=== PATIENT | male | born 1985 | race Caucasian/White ===

== ENCOUNTER 2017-02-25 08:28 | Inpatient (IN) | payer BC ==
[2017-02-25 09:17] VITALS: BMI 28.0
[2017-02-25] MEDS ORDERED: diphenhydrAMINE HCL 50 MG CAPSULE PO PRN (11:19)
[2017-02-25] MEDS ORDERED: LOPERAMIDE HCL 2 MG CAPSULE PO PRN (11:19)
[2017-02-25] MEDS ORDERED: MAGNESIUM CITRATE 300 ML BOTTLE PO PRN (11:19)
[2017-02-25] MEDS ORDERED: P-EPHED 60MG/TRIPROLIDI 2.5MG TABLET PO PRN (11:19)
[2017-02-25] MEDS ORDERED: MAGNESIUM HYDROX 2400MG/30ML ORAL SUSPENSION 30 ML CUP PO PRN (11:19)
[2017-02-25] MEDS ORDERED: IBUPROFEN 400 MG TABLET (FP) PO PRN (11:19)
[2017-02-25] MEDS ORDERED: ACETAMINOPHEN 325 MG TABLET (FP) PO PRN (11:19)
[2017-02-25] MEDS ORDERED: guaiFENesin/D-METHORPHAN HB 10 ML UNIT-DOSE CUPS PO PRN (11:19)
[2017-02-25] MEDS ORDERED: MENTHOL/PHENOL 1 EACH UD MM PRN (11:19)
[2017-02-25] MEDS ORDERED: ZOLPIDEM TARTRATE 10 MG TABLET (PARK CARE ONLY) PO PRN (11:21)
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
[2017-02-25] MEDS: NICOTINE 21 MG/24 HOURS TOPICAL PATCH TD SCH (13:12)
[2017-02-25] MEDS ORDERED: chlordiazePOXIDE HCL 25 MG CAPSULE PO ONE (13:15)
[2017-02-25] MEDS ORDERED: METHADONE HCL 10 MG TABLET (FOR DETOX USE ONLY) PO ONE ×2 (13:15→23:00)
[2017-02-25 13:47] LABS: MCH 30.1 pg (25.7-33.7); MCHC 33.7 g/dl (32.0-35.9); MEAN CELL VOLUME 89.4 fl (80-96); MEAN PLT VOLUME 9.3 fl (7.5-11.1); PLATELET COUNT 213 K/MM3 (134-434); RDW 12.3 % (11.9-15.9); WHITE BLOOD COUNT 10.7 K/mm3 (4.0-10.0)
[2017-02-25 14:15] LABS: ALBUMIN 4.4 g/dl (3.4-5.0); ALK PHOS 57 U/L (45-117); ANION GAP 7 (8-16); BILIRUBIN,TOTAL 0.7 mg/dL (0.2-1.0); CALCIUM 9.5 mg/dL (8.5-10.1); CO2 28 mmol/L (21-32); CREATININE 0.8 mg/dL (0.7-1.3); GLUCOSE,RANDOM 104 mg/dL (74-106); SGOT/AST 14 U/L (15-37); SGPT/ALT 32 U/L (12-78); TOT PROT 7.9 g/dl (6.4-8.2)
[2017-02-25 14:38] LABS: SICKLE CELL SCREEN NEGATIVE (NEGATIVE)
[2017-02-25] MEDS: chlordiazePOXIDE HCL 25 MG CAPSULE PO SCH ×2 (17:10→22:11)
[2017-02-25 17:37] LABS: URINE APPEARANCE CLEAR; URINE BILIRUBIN NEGATIVE (NEGATIVE); URINE BLOOD 1+ (NEGATIVE); URINE COLOR LTYELLOW; URINE GLUCOSE (UA) NEGATIVE (NEGATIVE); URINE KETONE TRACE (NEGATIVE); URINE LEUK ESTERASE NEGATIVE (NEGATIVE); URINE NITRITE NEGATIVE (NEGATIVE); URINE PROTEIN NEGATIVE (NEGATIVE); URINE UROBILINOGEN NEGATIVE mg/dL (0.2-1.0)
[2017-02-25 17:46] LABS: URINE MUCUS RARE; URINE RBC 1 /hpf (0-3); URINE WBC <1 /hpf (3-5)
[2017-02-25] MEDS: THIAMINE HCL 100 MG TABLET (FP) PO SCH (22:11)
[2017-02-25] MEDS: NICOTINE POLACRILEX 4 MG GUM BC PRN (22:26)
[2017-02-26] MEDS: chlordiazePOXIDE HCL 25 MG CAPSULE PO SCH ×4 (05:34→22:19)
[2017-02-26] MEDS: NICOTINE POLACRILEX 4 MG GUM BC PRN ×6 (05:36→23:06)
[2017-02-26] MEDS ORDERED: METHADONE HCL 10 MG TABLET (FOR DETOX USE ONLY) PO SCH (10:00)
[2017-02-26] MEDS: PRENATAL VITAMINS W/ FOLIC ACID TABLET (FP) PO SCH (11:08)
[2017-02-26] MEDS: NICOTINE 21 MG/24 HOURS TOPICAL PATCH TD SCH (11:09)
--- NOTE | 2017-02-26 12:27 | EKG ---
Test Reason : Blood Pressure : / mmHG Vent. Rate : 067 BPM Atrial Rate : 067 BPM P-R Int : 150 ms QRS Dur : 112 ms QT Int : 414 ms P-R-T Axes : 045 040 048 degrees QTc Int : 437 ms NORMAL SINUS RHYTHM WITH SINUS ARRHYTHMIA NORMAL ECG NO PREVIOUS ECGS AVAILABLE Confirmed by AMINA MARTINEZ MD ([id number]) on 02/26/2017 12:27:39 PM Referred By: Callum Blum Confirmed By:AMINA MARTINEZ MD
--- NOTE | 2017-02-26 13:06 | PN ---
[facility] CIWA - CIWA Score Nausea/Vomitin-No Nausea/No Vomiting Muscle Tremors: 4-Moderate,w/Arms Extend Anxiety: 4-Mod. Anxious/Guarded Agitation: 4-Moderately Restless Paroxysmal Sweats: 3 Orientation: 0-Oriented Tacttile Disturbances: 0-None Auditory Disturbances: 0-None Visual Disturbances: 0-None Headache: 0-None Present CIWA-Ar Total Score: 15 BHS COWS - Scale Resting Pulse: 0= [place] 80 or Below Sweatin=Flushed/Facial Moisture Restless Observation: 1= Difficult to Sit Still Pupil Size: 0= Normal to Room Light Bone or Joint Aches: 2= Severe Diffuse Aches Runny Nose/ Eye Tearin= Runny Nose/Eyes GI Upset > 30mins: 1= Stomach Cramp Tremor Observation of Outstretched Hands: 2= Slight Tremor Visible Yawning Observation: 1= 1-2x During Session Anxiety or Irritability: 2=Irritable/Anxious Goose Flesh Skin: 0=Smooth Skin COWS Score: 13 S Progress Note (SOAP) Subjective: shakes sweats interrupted sleep agitation body aches Objective: 02/26/17 13:05 Vital Signs Temperature 97.7 F 02/26/17 10:05 Pulse Rate 77 02/26/17 10:05 Respiratory Rate 18 02/26/17 10:05 Blood Pressure 134/73 02/26/17 10:05 O2 Sat by Pulse Oximetry (%) Laboratory Tests 02/25/17 02/25/17 02/25/17 11:40 11:40 11:40 WBC 10.7 H RBC 5.25 Hgb 15.8 Hct 46.9 MCV 89.4 MCH 30.1 MCHC 33.7 RDW 12.3 Plt Count 213 MPV 9.3 Sickle Cell Screen Negative Sodium 137 Potassium 4.7 Chloride 102 Carbon Dioxide 28 Anion Gap 7 L BUN 13 Creatinine 0.8 Creat Clearance w eGFR > 60 Random Glucose 104 Calcium 9.5 Total Bilirubin 0.7 AST 14 L ALT 32 Alkaline Phosphatase 57 Total Protein 7.9 Albumin 4.4 Urine Color Urine Appearance Urine pH Ur Specific [place] Urine Protein Urine Glucose (UA) Urine Ketones Urine Blood Urine Nitrite Urine Bilirubin Urine Urobilinogen Ur Leukocyte Esterase Urine RBC Urine WBC Urine Mucus RPR Titer Hepatitis C Antibody <0.1 02/25/17 02/25/17 11:40 12:00 WBC RBC Hgb Hct MCV MCH MCHC RDW Plt Count MPV Sickle Cell Screen Sodium Potassium Chloride Carbon Dioxide Anion Gap BUN Creatinine Creat Clearance w eGFR Random Glucose Calcium Total Bilirubin AST ALT Alkaline Phosphatase Total Protein Albumin Urine Color Ltyellow Urine Appearance Clear Urine pH 5.0 Ur Specific [place] 1.015 Urine Protein Negative Urine Glucose (UA) Negative Urine Ketones Trace H Urine Blood 1+ H Urine Nitrite Negative Urine Bilirubin Negative Urine Urobilinogen Negative Ur Leukocyte Esterase Negative Urine RBC 1 Urine WBC <1 Urine Mucus Rare RPR Titer Nonreactive Hepatitis C Antibody awake/alert ambulating no acute distress Assessment: 02/26/17 13:06 withdrawal sx Plan: continue detox increase fluids
--- NOTE | 2017-02-26 13:40 | CONSULT ---
[facility] Psychiatric Consult - Data Date of interview: 02/26/17 Admission source: [facility] Identifying data: This is 31 years old female with no psychiatric hospitalization history intoxicated with: Alcohol, Heroin and Nicotine Substance Abuse History: Smoking history: Current every day smoker. Have you smoked in the past 12 months: Yes. Aproximately how many cigarettes per day: 20. Hx Chewing Tobacco Use: No. Initiated information on smoking cessation: Yes. 'Breaking Loose' booklet given: 02/25/17. - Substance & Tx. History. Hx Alcohol Use: Yes. Hx Substance Use: Yes. Substance Use Type: Alcohol, Heroin. Hx Substance Use Treatment: Yes (3 weeks ago was d/c from [place] for smoking , did not complete detox, rela). - Substances Abused. Heroin. Route: Inhalation. Frequency: Daily. Amount used: 10 bags. Age of first use: 28. Date of Last Use: 02/24/17. Alcohol-vodka/whisky/beer. Route: Oral. Frequency: Daily. Amount used: 1 liter/1-6 pk. Age of first use: 16. Date of Last Use: 02/25/17 Medical History: Denies any significant medical poflem Psychiatric History: Denies past psychiatric history. Patient reports anxiety and emotional distress due to incoming rehabilitation program he decided to go aftyer detoxifications protocol Physical/Sexual Abuse/Trauma History: Denies Additional Comment: Observation. Detox Unit Care Protocol Mental Status Exam - Mental Status Exam Alert and Oriented to: Person Cognitive Function: Fair Patient Appearance: Well Groomed Mood: Nervous, Anxious Affect: Mood Congruent Patient Behavior: Cooperative Speech Pattern: Excessive Voice Loudness: Normal Thought Process: Goal Oriented Thought Disorder: Being Controlled Hallucinations: Denies Suicidal Ideation: Denies Homicidal Ideation: Denies Insight/Judgement: Fair Sleep: Difficulty falling asleep Appetite: Fair Muscle strength/Tone: Normal Gait/Station: Normal Additional Comments: Observation. Detox unit care protocol Psychiatric Findings - Problem List ([place] 1, 2,3) (1) Alcohol dependence with uncomplicated withdrawal Current Visit: Yes Status: Chronic (2) Nicotine dependence Current Visit: Yes Status: Chronic Qualifiers: Nicotine product type: cigarettes Substance use status: uncomplicated Qualified Code(s): F17.210 - Nicotine dependence, cigarettes, uncomplicated (3) Opioid dependence with withdrawal Current Visit: Yes Status: Chronic (4) Drug-induced mood disorder Current Visit: Yes Status: Acute - Initial Treatment Plan Initial Treatment Plan: Observation. Detox unit care protocol. Haldol 1mg po prn q4 for anxiety
[2017-02-26] MEDS: chlordiazePOXIDE HCL 25 MG CAPSULE PO PRN (14:02)
[2017-02-26] MEDS: hydrOXYzine PAMOATE 50 MG CAPSULE (FP) PO PRN ×2 (15:20→19:41)
[2017-02-26] MEDS: THIAMINE HCL 100 MG TABLET (FP) PO SCH (22:18)
[2017-02-27] MEDS: hydrOXYzine PAMOATE 50 MG CAPSULE (FP) PO PRN ×5 (00:43→22:02)
[2017-02-27] MEDS: chlordiazePOXIDE HCL 25 MG CAPSULE PO SCH ×2 (06:06→11:22)
[2017-02-27] MEDS: NICOTINE POLACRILEX 4 MG GUM BC PRN (08:57)
--- NOTE | 2017-02-27 10:48 | PN ---
S CIWA - CIWA Score Nausea/Vomitin Muscle Tremors: 3 Anxiety: 3 Agitation: 3 Paroxysmal Sweats: 1-Minimal Palms Moist Orientation: 0-Oriented Tacttile Disturbances: 1-Very Mild Itch/Numbness Auditory Disturbances: 1-Very Mild Visual Disturbances: 0-None Headache: 2-Mild CIWA-Ar Total Score: 17 BHS COWS - Scale Resting Pulse: 1= [place] 81-100 Sweatin= Chills/Flushing Restless Observation: 3= Extraneous Movement Pupil Size: 1= Pupils >than Normal Bone or Joint Aches: 2= Severe Diffuse Aches Runny Nose/ Eye Tearin= Nasal Congestion GI Upset > 30mins: 2= Nausea/Diarrhea Tremor Observation of Outstretched Hands: 2= Slight Tremor Visible Yawning Observation: 1= 1-2x During Session Anxiety or Irritability: 2=Irritable/Anxious Goose Flesh Skin: 0=Smooth Skin COWS Score: 16 BHS Progress Note (SOAP) Subjective: ALERT,IRRITABLE,ANXIOUS,INTERRUPTED SLEEP,TREMOR,PAIN IN THE BODY AND BACK Objective: 02/27/17 10:47 Vital Signs Temperature 98.1 F 02/27/17 10:01 Pulse Rate 83 02/27/17 10:01 Respiratory Rate 18 02/27/17 10:01 Blood Pressure 129/80 02/27/17 10:01 O2 Sat by Pulse Oximetry (%) Laboratory Last Values WBC 10.7 K/mm3 (4.0-10.0) H 02/25/17 11:40 RBC 5.25 M/mm3 (4.00-5.60) 02/25/17 11:40 Hgb 15.8 GM/dL (11.7-16.9) 02/25/17 11:40 Hct 46.9 % (35.4-49) 02/25/17 11:40 MCV 89.4 fl (80-96) 02/25/17 11:40 MCH 30.1 pg (25.7-33.7) 02/25/17 11:40 MCHC 33.7 g/dl (32.0-35.9) 02/25/17 11:40 RDW 12.3 % (11.9-15.9) 02/25/17 11:40 Plt Count 213 K/MM3 (134-434) 02/25/17 11:40 MPV 9.3 fl (7.5-11.1) 02/25/17 11:40 Sickle Cell Screen Negative (NEGATIVE) 02/25/17 11:40 Sodium 137 mmol/L (136-145) 02/25/17 11:40 Potassium 4.7 mmol/L (3.5-5.1) 02/25/17 11:40 Chloride 102 mmol/L (98-107) 02/25/17 11:40 Carbon Dioxide 28 mmol/L (21-32) 02/25/17 11:40 Anion Gap 7 (8-16) L 02/25/17 11:40 BUN 13 mg/dL (7-18) 02/25/17 11:40 Creatinine 0.8 mg/dL (0.7-1.3) 02/25/17 11:40 Creat Clearance w eGFR > 60 (>60) 02/25/17 11:40 Random Glucose 104 mg/dL (74-106) 02/25/17 11:40 Calcium 9.5 mg/dL (8.5-10.1) 02/25/17 11:40 Total Bilirubin 0.7 mg/dL (0.2-1.0) 02/25/17 11:40 AST 14 U/L (15-37) L 02/25/17 11:40 ALT 32 U/L (12-78) 02/25/17 11:40 Alkaline Phosphatase 57 U/L (45-117) 02/25/17 11:40 Total Protein 7.9 g/dl (6.4-8.2) 02/25/17 11:40 Albumin 4.4 g/dl (3.4-5.0) 02/25/17 11:40 Urine Color Ltyellow 02/25/17 12:00 Urine Appearance Clear 02/25/17 12:00 Urine pH 5.0 (5.0-8.0) 02/25/17 12:00 Ur Specific [place] 1.015 (1.005-1.025) 02/25/17 12:00 Urine Protein Negative (NEGATIVE) 02/25/17 12:00 Urine Glucose (UA) Negative (NEGATIVE) 02/25/17 12:00 Urine Ketones Trace (NEGATIVE) H 02/25/17 12:00 Urine Blood 1+ (NEGATIVE) H 02/25/17 12:00 Urine Nitrite Negative (NEGATIVE) 02/25/17 12:00 Urine Bilirubin Negative (NEGATIVE) 02/25/17 12:00 Urine Urobilinogen Negative mg/dL (0.2-1.0) 02/25/17 12:00 Ur Leukocyte Esterase Negative (NEGATIVE) 02/25/17 12:00 Urine RBC 1 /hpf (0-3) 02/25/17 12:00 Urine WBC <1 /hpf (3-5) 02/25/17 12:00 Urine Mucus Rare 02/25/17 12:00 RPR Titer Nonreactive (NONREACTIVE) 02/25/17 11:40 Hepatitis C Antibody <0.1 s/co ratio (0.0-0.9) 02/25/17 11:40 Assessment: 02/27/17 10:47 WITHDRAWAL SYMPTOM Plan: CONTINUE DETOX,ENCOURAGE ORAL FLUID
[2017-02-27] MEDS: HALOPERIDOL 1 MG TABLET (FP) PO PRN (11:22)
[2017-02-27] MEDS: NICOTINE 21 MG/24 HOURS TOPICAL PATCH TD SCH (11:22)
[2017-02-27] MEDS: METHADONE HCL 5 MG TABLET (FOR DETOX USE ONLY) PO SCH (11:22)
[2017-02-27] MEDS: PRENATAL VITAMINS W/ FOLIC ACID TABLET (FP) PO SCH (11:22)
[2017-02-27] MEDS: chlordiazePOXIDE HCL 25 MG CAPSULE PO PRN (12:48)
[2017-02-27] MEDS: chlordiazePOXIDE 5 MG CAPSULE PO SCH ×2 (16:55→22:02)
[2017-02-27] MEDS: THIAMINE HCL 100 MG TABLET (FP) PO SCH (22:02)
[2017-02-28] MEDS: chlordiazePOXIDE 5 MG CAPSULE PO SCH ×2 (05:37→10:52)
[2017-02-28] MEDS: hydrOXYzine PAMOATE 50 MG CAPSULE (FP) PO PRN ×4 (05:39→23:12)
[2017-02-28] MEDS: METHADONE HCL 5 MG TABLET (FOR DETOX USE ONLY) PO SCH (10:52)
[2017-02-28] MEDS: PRENATAL VITAMINS W/ FOLIC ACID TABLET (FP) PO SCH (10:52)
[2017-02-28] MEDS: NICOTINE 21 MG/24 HOURS TOPICAL PATCH TD SCH (10:53)
--- NOTE | 2017-02-28 11:34 | PN ---
BHS Progress Note (SOAP) Subjective: shakes, sweats and anxiety Objective: 02/28/17 11:33 Vital Signs - 8 hr 02/28/17 02/28/17 06:43 10:00 Temperature 96.6 F L 97.9 F Pulse Rate 66 91 H Respiratory 18 20 Rate Blood Pressure 131/73 115/91 Laboratory Last Values WBC 10.7 K/mm3 (4.0-10.0) H 02/25/17 11:40 RBC 5.25 M/mm3 (4.00-5.60) 02/25/17 11:40 Hgb 15.8 GM/dL (11.7-16.9) 02/25/17 11:40 Hct 46.9 % (35.4-49) 02/25/17 11:40 MCV 89.4 fl (80-96) 02/25/17 11:40 MCH 30.1 pg (25.7-33.7) 02/25/17 11:40 MCHC 33.7 g/dl (32.0-35.9) 02/25/17 11:40 RDW 12.3 % (11.9-15.9) 02/25/17 11:40 Plt Count 213 K/MM3 (134-434) 02/25/17 11:40 MPV 9.3 fl (7.5-11.1) 02/25/17 11:40 Sickle Cell Screen Negative (NEGATIVE) 02/25/17 11:40 Sodium 137 mmol/L (136-145) 02/25/17 11:40 Potassium 4.7 mmol/L (3.5-5.1) 02/25/17 11:40 Chloride 102 mmol/L (98-107) 02/25/17 11:40 Carbon Dioxide 28 mmol/L (21-32) 02/25/17 11:40 Anion Gap 7 (8-16) L 02/25/17 11:40 BUN 13 mg/dL (7-18) 02/25/17 11:40 Creatinine 0.8 mg/dL (0.7-1.3) 02/25/17 11:40 Creat Clearance w eGFR > 60 (>60) 02/25/17 11:40 Random Glucose 104 mg/dL (74-106) 02/25/17 11:40 Calcium 9.5 mg/dL (8.5-10.1) 02/25/17 11:40 Total Bilirubin 0.7 mg/dL (0.2-1.0) 02/25/17 11:40 AST 14 U/L (15-37) L 02/25/17 11:40 ALT 32 U/L (12-78) 02/25/17 11:40 Alkaline Phosphatase 57 U/L (45-117) 02/25/17 11:40 Total Protein 7.9 g/dl (6.4-8.2) 02/25/17 11:40 Albumin 4.4 g/dl (3.4-5.0) 02/25/17 11:40 Urine Color Ltyellow 02/25/17 12:00 Urine Appearance Clear 02/25/17 12:00 Urine pH 5.0 (5.0-8.0) 02/25/17 12:00 Ur Specific [place] 1.015 (1.005-1.025) 02/25/17 12:00 Urine Protein Negative (NEGATIVE) 02/25/17 12:00 Urine Glucose (UA) Negative (NEGATIVE) 02/25/17 12:00 Urine Ketones Trace (NEGATIVE) H 02/25/17 12:00 Urine Blood 1+ (NEGATIVE) H 02/25/17 12:00 Urine Nitrite Negative (NEGATIVE) 02/25/17 12:00 Urine Bilirubin Negative (NEGATIVE) 02/25/17 12:00 Urine Urobilinogen Negative mg/dL (0.2-1.0) 02/25/17 12:00 Ur Leukocyte Esterase Negative (NEGATIVE) 02/25/17 12:00 Urine RBC 1 /hpf (0-3) 02/25/17 12:00 Urine WBC <1 /hpf (3-5) 02/25/17 12:00 Urine Mucus Rare 02/25/17 12:00 RPR Titer Nonreactive (NONREACTIVE) 02/25/17 11:40 Hepatitis C Antibody <0.1 s/co ratio (0.0-0.9) 02/25/17 11:40 labs noted Assessment: 02/28/17 11:34 withdrawal sx Plan: continue detox
[2017-02-28] MEDS: HALOPERIDOL 1 MG TABLET (FP) PO PRN (14:34)
[2017-02-28] MEDS: chlordiazePOXIDE HCL 10 MG CAPSULE PO SCH ×2 (16:50→23:01)
[2017-02-28] MEDS: MAG HYDROX/AL HYDROX/SIMETH 30 ML UNIT-DOSE CUP PO PRN (18:10)
[2017-02-28] MEDS: THIAMINE HCL 100 MG TABLET (FP) PO SCH (23:01)
[2017-03-01] MEDS: chlordiazePOXIDE HCL 10 MG CAPSULE PO SCH ×2 (05:57→10:45)
[2017-03-01] MEDS: hydrOXYzine PAMOATE 50 MG CAPSULE (FP) PO PRN ×4 (05:58→22:37)
[2017-03-01] MEDS ORDERED: METHADONE HCL 10 MG TABLET (FOR DETOX USE ONLY) PO SCH (10:00)
[2017-03-01] MEDS: PRENATAL VITAMINS W/ FOLIC ACID TABLET (FP) PO SCH (10:45)
[2017-03-01] MEDS: NICOTINE 21 MG/24 HOURS TOPICAL PATCH TD SCH (10:46)
[2017-03-01] MEDS: MAG HYDROX/AL HYDROX/SIMETH 30 ML UNIT-DOSE CUP PO PRN (15:52)
[2017-03-01] MEDS: NICOTINE POLACRILEX 4 MG GUM BC PRN (17:25)
--- NOTE | 2017-03-01 19:24 | PN ---
BHS Progress Note (SOAP) Subjective: Sweating,interrupted sleep,restless Objective: 03/01/17 19:23 Vital Signs - 8 hr 03/01/17 03/01/17 14:36 17:35 Temperature 97.9 F 97.3 F L Pulse Rate 97 H 78 Respiratory 18 18 Rate Blood Pressure 118/68 124/78 Laboratory Last Values WBC 10.7 K/mm3 (4.0-10.0) H 02/25/17 11:40 RBC 5.25 M/mm3 (4.00-5.60) 02/25/17 11:40 Hgb 15.8 GM/dL (11.7-16.9) 02/25/17 11:40 Hct 46.9 % (35.4-49) 02/25/17 11:40 MCV 89.4 fl (80-96) 02/25/17 11:40 MCH 30.1 pg (25.7-33.7) 02/25/17 11:40 MCHC 33.7 g/dl (32.0-35.9) 02/25/17 11:40 RDW 12.3 % (11.9-15.9) 02/25/17 11:40 Plt Count 213 K/MM3 (134-434) 02/25/17 11:40 MPV 9.3 fl (7.5-11.1) 02/25/17 11:40 Sickle Cell Screen Negative (NEGATIVE) 02/25/17 11:40 Sodium 137 mmol/L (136-145) 02/25/17 11:40 Potassium 4.7 mmol/L (3.5-5.1) 02/25/17 11:40 Chloride 102 mmol/L (98-107) 02/25/17 11:40 Carbon Dioxide 28 mmol/L (21-32) 02/25/17 11:40 Anion Gap 7 (8-16) L 02/25/17 11:40 BUN 13 mg/dL (7-18) 02/25/17 11:40 Creatinine 0.8 mg/dL (0.7-1.3) 02/25/17 11:40 Creat Clearance w eGFR > 60 (>60) 02/25/17 11:40 Random Glucose 104 mg/dL (74-106) 02/25/17 11:40 Calcium 9.5 mg/dL (8.5-10.1) 02/25/17 11:40 Total Bilirubin 0.7 mg/dL (0.2-1.0) 02/25/17 11:40 AST 14 U/L (15-37) L 02/25/17 11:40 ALT 32 U/L (12-78) 02/25/17 11:40 Alkaline Phosphatase 57 U/L (45-117) 02/25/17 11:40 Total Protein 7.9 g/dl (6.4-8.2) 02/25/17 11:40 Albumin 4.4 g/dl (3.4-5.0) 02/25/17 11:40 Urine Color Ltyellow 02/25/17 12:00 Urine Appearance Clear 02/25/17 12:00 Urine pH 5.0 (5.0-8.0) 02/25/17 12:00 Ur Specific [place] 1.015 (1.005-1.025) 02/25/17 12:00 Urine Protein Negative (NEGATIVE) 02/25/17 12:00 Urine Glucose (UA) Negative (NEGATIVE) 02/25/17 12:00 Urine Ketones Trace (NEGATIVE) H 02/25/17 12:00 Urine Blood 1+ (NEGATIVE) H 02/25/17 12:00 Urine Nitrite Negative (NEGATIVE) 02/25/17 12:00 Urine Bilirubin Negative (NEGATIVE) 02/25/17 12:00 Urine Urobilinogen Negative mg/dL (0.2-1.0) 02/25/17 12:00 Ur Leukocyte Esterase Negative (NEGATIVE) 02/25/17 12:00 Urine RBC 1 /hpf (0-3) 02/25/17 12:00 Urine WBC <1 /hpf (3-5) 02/25/17 12:00 Urine Mucus Rare 02/25/17 12:00 RPR Titer Nonreactive (NONREACTIVE) 02/25/17 11:40 Hepatitis C Antibody <0.1 s/co ratio (0.0-0.9) 02/25/17 11:40 labs noted Assessment: 03/01/17 19:24 Withdrawal sx. Plan: Continue detox
[2017-03-01] MEDS: THIAMINE HCL 100 MG TABLET (FP) PO SCH (22:35)
[2017-03-02] MEDS: MAG HYDROX/AL HYDROX/SIMETH 30 ML UNIT-DOSE CUP PO PRN (01:24)
[2017-03-02] MEDS: hydrOXYzine PAMOATE 50 MG CAPSULE (FP) PO PRN ×2 (05:34→10:27)
[2017-03-02] MEDS ORDERED: METHADONE HCL 5 MG TABLET (FOR DETOX USE ONLY) PO SCH (06:00)
--- NOTE | 2017-03-02 08:12 | DS ---
[facility] Detox Discharge Summary Admission Date: 02/25/17 Discharge Date: 03/02/17 - History Present History: Alcohol Dependence, Opioid Dependence - Physical Exam Results Vital Signs: Vital Signs Temperature 98.1 F 03/02/17 06:00 Pulse Rate 81 03/02/17 06:00 Respiratory Rate 18 03/02/17 06:00 Blood Pressure 130/72 03/02/17 06:00 O2 Sat by Pulse Oximetry (%) - Treatment Hospital Course: Detox Protocol Followed, Detoxed Safely, Responded well, Discharged Condition Good, Rehab Referral Accepted - Medication Discharge Medications: Ambulatory Orders NK [No Known Home Medication] 02/25/17 - Diagnosis (1) Alcohol dependence with uncomplicated withdrawal Current Visit: Yes Status: Chronic (2) Nicotine dependence Current Visit: Yes Status: Chronic Qualifiers: Nicotine product type: cigarettes Substance use status: uncomplicated Qualified Code(s): F17.210 - Nicotine dependence, cigarettes, uncomplicated (3) Opioid dependence with withdrawal Current Visit: Yes Status: Chronic - AMA Did Patient Leave Against Medical Advice: No ([facility] rehab)
[2017-03-02 09:52] VITALS: BP 144/80; PULSE 93; TEMP 97.7
[2017-03-02] MEDS: NICOTINE 21 MG/24 HOURS TOPICAL PATCH TD SCH (10:27)
[2017-03-02] MEDS: PRENATAL VITAMINS W/ FOLIC ACID TABLET (FP) PO SCH (10:27)
== END 2017-03-02 11:27 | disposition other institution (70) | DRG 773 ==
LOC: YASAS 08:28 → Y6N 11:46
PROVIDERS: ADMIT Internal Medicine Addiction Medicine; ATTEND Internal Medicine Addiction Medicine
PROC: HZ2ZZZZ Detoxification Services for Substance Abuse Treatment (ICD-10-PCS; principal; 2017-02-25)
DX: F11.23 Opioid dependence with withdrawal (principal); F10.230 Alcohol dependence with withdrawal, uncomplicated; F17.210 Nicotine dependence, cigarettes, uncomplicated; F19.24 Other psychoactive substance dependence with psychoactive substance-induced mood disorder
CPT/HCPCS: 36415; 80053; 81003; 81015; 85027; 85660; 86593; 86803; 93005; 93010

== ENCOUNTER 2017-03-02 11:39 | Inpatient (IN) | payer BC ==
[2017-03-02 12:13] VITALS: BMI 29.5
[2017-03-02] MEDS ORDERED: IBUPROFEN 400 MG TABLET (FP) PO PRN (12:36)
[2017-03-02] MEDS ORDERED: P-EPHED 60MG/TRIPROLIDI 2.5MG TABLET PO PRN (12:36)
[2017-03-02] MEDS ORDERED: MENTHOL/PHENOL 1 EACH UD MM PRN (12:36)
[2017-03-02] MEDS ORDERED: guaiFENesin/D-METHORPHAN HB 10 ML UNIT-DOSE CUPS PO PRN (12:36)
[2017-03-02] MEDS ORDERED: NICOTINE POLACRILEX 2 MG GUM BUC PRN (12:36)
[2017-03-02] MEDS ORDERED: ACETAMINOPHEN 325 MG TABLET (FP) PO PRN (12:36)
[2017-03-02] MEDS ORDERED: MAGNESIUM HYDROX 2400MG/30ML ORAL SUSPENSION 30 ML CUP PO PRN (12:36)
[2017-03-02] MEDS ORDERED: LOPERAMIDE HCL 2 MG CAPSULE PO PRN (12:36)
[2017-03-02] MEDS ORDERED: MAGNESIUM CITRATE 300 ML BOTTLE PO PRN (12:36)
[2017-03-02] MEDS ORDERED: diphenhydrAMINE HCL 50 MG CAPSULE PO PRN (12:36)
[2017-03-02] MEDS ORDERED: MAG HYDROX/AL HYDROX/SIMETH 30 ML UNIT-DOSE CUP PO PRN (12:36)
--- NOTE | 2017-03-02 13:47 | HP ---
Psychiatrist Admission - Data Date of interview: 03/02/17 Admission source: 6N Identifying data: This is the first [facility] admission for this 31 year old single male, unemployed, domiciled Medical History: Unremarkable Psychiatric History: Denies history of previous psychiatric treatment Physical/Sexual Abuse/Trauma History: Denies Additional Comment: Reports of one previous arrest on charges of DUI 12 years ago Vital Signs: Vital Signs - 24 hr 03/02/17 11:57 Temperature 98 F Pulse Rate 98 H Respiratory 19 Rate Blood Pressure 139/88 Allergies/Adverse Reactions: Allergies Allergy/AdvReac Type Severity Reaction Status Date / Time No Known Allergies Allergy Verified 02/25/17 09:36 Date of last physical exam: 02/25/17 Concur with the findings of this exam: Yes - Substance Abuse/Tx History Hx Alcohol Use: Yes Hx Substance Use: Yes Substance Use Type: Alcohol (Started drinking alcohol at age 16, consumes one litre of vodka/whiskey & one 6pk of beer daily. Last drink on 02/25/17), Heroin ( Started using heroin at age 28, consumes 10 bags daily. Last used on 02/24/17) Hx Substance Use Treatment: Yes (2 previous inpt detox and one inpt rehab @ [facility]) - Admission Criteria Previous failed treatment: No Poor recovery environment: Yes Comorbidities: Yes Lacks judgement: Yes Mental Status Exam - Mental Status Exam Alert and Oriented to: Time, Place, Person Cognitive Function: Fair Patient Appearance: Well Groomed Mood: Hopeful, Euthymic Patient Behavior: Cooperative Speech Pattern: Clear Voice Loudness: Normal Thought Disorder: Not Present Hallucinations: Denies Suicidal Ideation: Denies Homicidal Ideation: Denies Insight/Judgement: Fair Sleep: Well Appetite: Good Muscle strength/Tone: Normal Gait/Station: Normal Psychiatric Findings - Problem List ([place] 1, 2,3) (1) Alcohol dependence Current Visit: Yes Status: Acute (2) Opioid dependence Current Visit: Yes Status: Acute (3) Nicotine dependence Current Visit: No Status: Chronic Qualifiers: Nicotine product type: cigarettes Substance use status: uncomplicated Qualified Code(s): F17.210 - Nicotine dependence, cigarettes, uncomplicated - Initial Treatment Plan Initial Treatment Plan: Monitpr progress
--- NOTE | 2017-03-02 16:20 | HP ---
[facility] Rehab Assess/Revision - Admission History Admitted to Rehab from: [facility] [place] Date of Admission to Rehab: 03/02/17 - Vital signs Vital Signs: Vital Signs Period Temp Pulse Resp BP Sys/Serrano Pulse Ox Last 24 Hr 98 F 98 19 139/88 - Findings Detox History & Physical reviewed: Yes Concur with findings: Yes Comments/Additional Findings: transferred from detox to rehab admission as per protocol
[2017-03-02] MEDS: hydrOXYzine PAMOATE 50 MG CAPSULE (FP) PO PRN (21:21)
[2017-03-02] MEDS: THIAMINE HCL 100 MG TABLET (FP) PO SCH (21:22)
[2017-03-03] MEDS: NICOTINE 14 MG/24 HOURS TOPICAL PATCH TD SCH (10:35)
[2017-03-03] MEDS: PRENATAL VITAMINS W/ FOLIC ACID TABLET (FP) PO SCH (10:35)
[2017-03-03 12:37] LABS: HIV 1 & 2 AB NEGATIVE; HIV 1 AGp24 NEGATIVE
[2017-03-03] MEDS: hydrOXYzine PAMOATE 50 MG CAPSULE (FP) PO PRN ×2 (14:10→21:32)
[2017-03-03] MEDS: THIAMINE HCL 100 MG TABLET (FP) PO SCH (21:32)
[2017-03-04] MEDS: hydrOXYzine PAMOATE 50 MG CAPSULE (FP) PO PRN ×2 (10:27→21:29)
[2017-03-04] MEDS: PRENATAL VITAMINS W/ FOLIC ACID TABLET (FP) PO SCH (10:27)
[2017-03-04] MEDS: NICOTINE 14 MG/24 HOURS TOPICAL PATCH TD SCH (10:54)
[2017-03-04] MEDS: THIAMINE HCL 100 MG TABLET (FP) PO SCH (21:29)
[2017-03-05] MEDS: hydrOXYzine PAMOATE 50 MG CAPSULE (FP) PO PRN ×3 (10:03→19:30)
[2017-03-05] MEDS: PRENATAL VITAMINS W/ FOLIC ACID TABLET (FP) PO SCH (10:03)
[2017-03-05] MEDS: NICOTINE 14 MG/24 HOURS TOPICAL PATCH TD SCH (10:04)
[2017-03-05] MEDS: THIAMINE HCL 100 MG TABLET (FP) PO SCH (22:03)
[2017-03-06 06:42] VITALS: BP 122/76; PULSE 68; TEMP 97.6
[2017-03-06] MEDS: NICOTINE 14 MG/24 HOURS TOPICAL PATCH TD SCH (09:38)
[2017-03-06] MEDS: PRENATAL VITAMINS W/ FOLIC ACID TABLET (FP) PO SCH (09:38)
[2017-03-06] MEDS: hydrOXYzine PAMOATE 50 MG CAPSULE (FP) PO PRN (09:39)
== END 2017-03-06 11:20 | disposition left against medical advice (07) | DRG 770 ==
LOC: YASAS 11:39 → Y3W 11:40
PROVIDERS: ADMIT Psychiatry & Neurology Psychiatry; ATTEND Psychiatry & Neurology Psychiatry
PROC: HZ42ZZZ Group Counseling for Substance Abuse Treatment, Cognitive-Behavioral (ICD-10-PCS; principal; 2017-03-02)
DX: F11.20 Opioid dependence, uncomplicated (principal); F10.20 Alcohol dependence, uncomplicated; F17.210 Nicotine dependence, cigarettes, uncomplicated
CPT/HCPCS: 36415; 87389